=== PATIENT | male | born 1970 | race Caucasian/White ===

== ENCOUNTER 2016-06-21 16:22 | Emergency (ER) | payer BC | END 2016-06-21 19:15 | disposition home or self-care (01) | LOC: ER 16:22 | DX: S86.911A Strain of unspecified muscle(s) and tendon(s) at lower leg level, right leg, initial encounter (principal); Z88.5 Allergy status to narcotic agent; X58.XXXA Exposure to other specified factors, initial encounter | CPT/HCPCS: 73560-RT; 99283; A9270-GY ==